=== PATIENT | male | born 1945 | race Caucasian/White ===

== ENCOUNTER 2017-06-05 06:38 | Observation (INO) | payer MEDICARE ==
[~2017-06-05] VITALS: Ht 162.6 cm; Wt 62.1 kg
[~2017-06-05 06:38] MED LIST: ATEN50TA PO; B-COINJ; B-COINJ IM; CETI-1 PO; DOCU1CAP66 PO; FURO1TAB62 PO; LATA0.002 EACH EYE; LEVO.05 PO; LEVO.075 PO; METO25TA3 PO; PANT40TA3 PO; TAMS5CAP PO
[2017-06-05] MEDS ORDERED: VANCOMYCIN 1 GM/200 ML PREMIX ON-CALL IV SCH (07:15)
[2017-06-05] MEDS ORDERED: LACTATED RINGER'S 1000 ML IV PRN (07:15)
[2017-06-05] MEDS ORDERED: SODIUM CHLORID 0.9% 500 ML IV PRN (07:15)
[2017-06-05] MEDS ORDERED: SODIUM CHLOR 0.9% 1000 ML INJ 1,000 ML IV SCH (07:15)
[2017-06-05] MEDS ORDERED: METOPROLOL TARTRATE 25 MG TAB PO PRN (07:15)
[2017-06-05] MEDS ORDERED: INSULIN HUMAN REGULAR 1,000 UNITS/10 ML VIAL SQ PRN (07:15)
[2017-06-05] MEDS ORDERED: POVIDONE IODINE 5% (ANTISEPSIS KIT) 4 APPLICATIONS EACH NARE PRN (07:15)
[2017-06-05] MEDS ORDERED: CHLORHEXIDINE GLUCONATE 2 % 1 PACK (2 CLOTHS) TOPICAL PRN (07:15)
[2017-06-05] MEDS ORDERED: GENTAMICIN SULFATE 80 MG/2 ML VIAL ONE ×2 (07:23→07:26)
[2017-06-05] MEDS ORDERED: THROMBIN (TOPICAL) 5,000 UNIT VIAL ONE (07:23)
[2017-06-05] MEDS ORDERED: GELFOAM SIZE 100 ONE (07:23)
[2017-06-05] MEDS ORDERED: PROPOFOL 500 MG/50 ML INJ 150 ML ONE (08:13)
[2017-06-05] MEDS ORDERED: SUFentanil INJ 250 MCG/5 ML AMP ONE (08:13)
[2017-06-05] MEDS ORDERED: HYDROmorphone HCL PF 2 MG/ML VIAL ONE (08:13)
[2017-06-05] MEDS ORDERED: ACETAMINOPHEN 1000 MG/100 ML 100 ML IV ONE (08:14)
[2017-06-05] MEDS ORDERED: ARTIFICIAL TEARS OPTH OINT 3.5 APPLIC/3.5 GM TUBO ONE (08:14)
[2017-06-05] MEDS ORDERED: ceFAZolin 2 GM PREMIX 50 ML ONE (08:47)
[2017-06-05] MEDS ORDERED: DEXAMETHASONE SOD PHOS 4 MG/ML VIAL ONE (08:56)
[2017-06-05] MEDS ORDERED: PHENYLEPH/NS 1000 MCG/10 ML SYR IV ONE (12:00)
[2017-06-05] MEDS ORDERED: PROPOFOL 200 MG/20 ML AMP IV ONE (12:00)
[2017-06-05] MEDS ORDERED: LACTATED RINGER'S 1,000 ML BAG IV ONE (12:00)
[2017-06-05] MEDS ORDERED: ROCURONIUM INJ 50 MG/5 ML SYRINGE IV PUSH ONE (12:00)
[2017-06-05] MEDS ORDERED: DEXAMETHASONE SOD PHOS 4 MG/ML VIAL IV ONE (12:00)
[2017-06-05] MEDS ORDERED: KETOROLAC TROMETHAMINE 30 MG/ML (IVP) VIAL IV PUSH ONE (12:00)
[2017-06-05] MEDS ORDERED: ePHEDrine/NS 25 MG/5 ML SYRINGE IV ONE (12:00)
[2017-06-05] MEDS ORDERED: ONDANSETRON HCL 4 MG/2 ML VIAL IV ONE (12:00)
[2017-06-05] MEDS ORDERED: METOPROLOL TARTRATE 5 MG/5 ML VIAL IV ONE (12:00)
--- NOTE | 2017-06-05 12:12 | PD.OP ---
Operative Report Date of Surgery: Jun 05, 2017 Preoperative Diagnosis: Cervical degenerative disk disease with instability Postoperative Diagnosis: Cervical degenerative disk disease with instability Procedure: C4-5, C5-6 anterior cervical discectomy, interbody arthodhesis using PEEK cage filled with autologous bone graft, Simplicity plate and screws. Anesthesia: general Surgeon: Alex Humphries Furnace Installer Helper(s): Parul Metz Operation and Findings: INDICATIONS FOR THE PROCEDURE Dr Simmons is a 72 year-old male who presented with intractable neck pain and clinical evidence of upper extremity C5, C6 radiculopathy. He was found to have significant spondylosis with stenosis and mechanical instability at C4-5. He failed maximum nonsurgical management including multiple modalities of conservative treatment as well as pain management interventions by an interventional pain specialist. A surgical decompression and arthrodhesis were indicated. The [id number] details of the procedure, indications, alternatives, risks and potential complications were fully discussed with the patient. The patient fully understood. All The questions were answered. No guarantees were given. The patient voiced requesting the procedure and provided informed consents. The patient was offered the alternative of delaying the procedure and continuing with nonsurgical management. DETAILS OF THE SURGICAL PROCEDURE After the induction of general anesthesia, endotracheal intubation was performed. A Love catheter, bilateral CHAYITO hose, and sequential compression devices were placed and kept throughout the procedure. Placement of electrodes for neurophysiological monitoring of the somatosensorial evoked potentials, motor evoked potentials, and EMG as well as laryngeal nerve monitoring was achieved. The patient was positioned supine on a Trent table with the head over a gel doughnut. All pressure points were carefully padded with eggcrate mattress. The eyes were tapped shut after ointment was applied by the anesthesiologist to prevent corneal abrasion. A Arnie hugger was placed over the exposed lower body to maintain control of the core body temperature. The electrophysiological team placed the needles and electrodes in their proper location and baseline SSEP's and motor evoked potentials were registered prior and after positioning and endotracheal intubation. The anterior cervical region was prepped and draped in the usual sterile fashion. A localizing x-ray was performed with a C-arm. The surgical procedure was performed in several steps as follow: SURGICAL APPROACH A skin incision was made along the medial cervical crease with a #10 blade. The dissection was carried out through the platysma exposing the sternocleidomastoid muscle. The cervical spine was approached following the fascial layers of the neck just medial to the anterior border of the sternocleidomastoid and carotid sheath by a combination of sharp and dull dissection. The omohyoid muscle was identified and carefully dissected laterally and the deep cervical fascia was carefully opened. The longus colli muscles were retracted to each side of the midline. A marker was placed at the disc space C5-6 and a cross-table lateral x-ray performed with a C-arm. SURGICAL DECOMPRESSION In order to decompress the anterior surface of the spinal cord it was necessary to preform a microsurgical resection of the disk at C4-5 and C5-6. At this point in the procedure the operating microscope was draped in the usual sterile fashion and brought to the field. The rest of the surgical procedure was performed using microdissection technique with the exception of the closure. Under the operative microscopic, a self-retaining retractor was placed underneath the longus colli muscle. Anterior osteophite spurs werte carefully removed with the Leksell. The annulus at C4-5 and C5-6 were incised with a #15 blade and microdiscectomy was then carefully carried out using angled curets and pituitary forceps. There were osteophitic/disk complexes mass effect and compression of the dural sac and nerve roots. The posterior longitudinal ligament was then elevated with an angled curet and incised with a 15 bladed knife. A careful resection of the posterior longitudinal ligament was carried out using a thin footplate 2 mm Kerrison. A nerve hook was used to assess the epidural space behing the vertebral bodies C5 and C6 in search for residual disk fragments. The margins of the posterior endplates at C4-5 and C5-6 were carefully drilled and undercut with a TPS drill under high magnification. The decompression was then carried out laterally, and a bilateral foraminotomy was performed with a 2mm thin foot Kerrison. Then the vertebral bodies above and below the disk space were undercut using a 2 mm thin foot Kerrison. The epidural space was the systematically assessed with a nerve hook in search for disk fragments or scar tissue. An excellent decompression was achieved in both , the dural sac and bilateral exiting nerve roots. The incision was then irrigated with a large amount of antibiotic solution INTERBODY ARTHRODHESIS In order to avoid collapse of the disk space which would result in bilateral foraminal stenosis, and to increase the chances of a successful fusion, it was necessary to place an interbody cage filled with autologous bone. At this point of the procedure, the superior and inferior endplates were then evenly decorticated with a TPS drill. The use of a drill in combination with a curette allowed me to systematically remove the cartilaginous endplates, exposing healthy bone for the interbody arthrodesis. Fourteen millimeters distraction pins were then placed at the vertebral bodies adjacent to the disk space, and gentle distraction was applied. The size of the interbody cage was then assessed using different size spacers, and a rasp was used to ensure no residual cartilage. A PEEK cage of the appropriate size was selected, and the interbody arthrodesis was then preformed by carefully impacting a PEEK cage filled with autologous bone graft to the disc spaces C4-5 and C5-6. An excellent position of the cage was achieved. This was was confirmed anatomically by feeling the space posterior to the implant and distance to the anterior surface of the dural sac. Radiological confirmation of the position was performed with a cross lateral xray performed with the C-arm. INTERNAL INSTRUMENTAL FIXATION Once that the interbody device was in an appropriate position, it was necessary to stabilize the spine with anterior instrumentation. Anterior instrumentation has demonstrated to increase the rate of fusion, acelerate the patient's recovery, and decrease the rate of failed interbody grafts. At this point of the procedure, the distance between the vertebral bodies was carefully measures, and a Simplicity plate was brought to the field and presented in front of the vertebral bodies C4 C5 and C6. Press Hand Supervisor holes were then drilled using the TPS drill, and the plate was then secured to the spine using self-drilling, self-tapping screws. Initially, the inferior right screw was inserted, followed by placement of the contralateral upper screw. The remanding screws were sequentially placed in a contra-lateral fashion. A proper purchase was achieved with all screws and the position of the cage, plate and screws, and alignment of the spine was assessed anatomically by direct visualization, and radiologically by performing a cross lateral xray of the cervical spine with the C-arm. CLOSURE The incision was irrigated with several liters of antibiotic solution. Hemostasis was achieved with a bipolar. The screws were locked to prevent backing out. A 7 mm Trent-Carlton drain was left in the prevertebral space and externalized through a separate stab incision. The incision was then closed in layers. 3-0 Vicryl with interrupted sutures was used to close the platysma and subcutaneous tissue. The skin was closed with 4-0 running subcuticular Vicryl and glue was applied to the skin. The drain was secured with a 3-0 nylon. At the end of the procedure the sponge, needle and instrument counts were all correct. The estimated blood loss was less than 60 cc. No blood transfusion was given. No intraoperative complications occurred. The patient received prophylactic antibiotics. The patient was then extubated and transferred to the recovery room in stable condition. Alex Humphries MD Jun 05, 2017 12:12
[2017-06-05] MEDS ORDERED: BISACODYL 10 MG SUPP RECTAL PRN (12:15)
[2017-06-05] MEDS ORDERED: ACETAMINOPHEN/HYDROcodone 325 MG/10 MG TAB PO PRN ×2 (12:15)
[2017-06-05] MEDS ORDERED: cloNIDine HCL 0.1 MG TAB PO/NG PRN (12:15)
[2017-06-05] MEDS ORDERED: ACETAMINOPHEN 325 MG TAB PO PRN (12:15)
[2017-06-05] MEDS ORDERED: GLUCAGON 1 MG/ML VIAL OTHER PRN (12:15)
[2017-06-05] MEDS ORDERED: MAGNESIUM HYDROXIDE SUSP 30 ML CUP PO PRN (12:15)
[2017-06-05] MEDS ORDERED: MENTHOL LOZENGE BUCCAL PRN (12:15)
[2017-06-05] MEDS ORDERED: RESP: ALBUTEROL 2.5 MG/3 ML NEB (PRN) INH (12:15)
[2017-06-05] MEDS ORDERED: ONDANSETRON HCL 4 MG/2 ML VIAL IV PRN (12:15)
[2017-06-05] MEDS ORDERED: CYCLOBENZAPRINE HCL 10 MG TAB PO PRN (12:15)
[2017-06-05] MEDS ORDERED: MORPHINE SULFATE 4 MG/ML INJ IV PUSH PRN ×2 (12:15)
[2017-06-05] MEDS ORDERED: DEXTROSE 50% IN WATER 50 ML VIAL(D50) IV PUSH PRN (12:15)
--- NOTE | 2017-06-05 12:29 | HHI.DCPOC ---
Discharge Care Plan Diagnosis: (1) Status post cervical arthrodesis Goals to Promote Your Health * To prevent worsening of your condition and complications * To maintain your health at the optimal level Directions to Meet Your Goals Take your medications as prescribed Follow your dietary instruction Follow activity as directed Keep your appointments as scheduled Take your immunizations and boosters as scheduled If your symptoms worsen call your PCP, if no PCP go to Urgent Care Center or Emergency Room Smoking is Dangerous to Your Health. Avoid second hand smoke Call the 24-hour hour crisis hotline for domestic abuse at Lotus Goins Jun 05, 2017 12:29
--- NOTE | 2017-06-05 12:30 | HHI.FF ---
Face to Face Verification Diagnosis: (1) Status post cervical arthrodesis Physical Therapy Order: Improve ambulation Occupational Therapy Order: Evaluate and Treat, Improve ADL, Gross motor coordination, Fine motor coordination Home Health Nursing Order: Medical education Signs/symptoms of disease process Medication education-adverse effect Wound care and dressing changes Nursing assessment with vital signs I have seen patient Jalen Briggs on 06/05/17. My clinical findings support the need for the requested home health care services because: Deconditioned w/ increased weakness I certify that my clinical findings support that this patient is homebound because: Post-op weakness Lotus Goins Jun 05, 2017 12:30
[2017-06-05] MEDS ORDERED: DO NOT ADM ANY ANTICOAGULANT DRUGS PRN (12:32)
[2017-06-05] MEDS ORDERED: DOCUSATE SODIUM 100 MG CAP PO PRN (12:45)
[2017-06-05] MEDS ORDERED: MIDAZOLAM HCL 2 MG/2 ML VIAL ONE (12:47)
[2017-06-05] MEDS ORDERED: *LABETALOL HCL 100 MG/20 ML VIAL PERIprocedural Use ONLY ONE (12:58)
[2017-06-05] MEDS ORDERED: *ENALAPRILAT 1.25 MG/ML VIAL PERIprocedural Use ONLY ONE (12:58)
[2017-06-05] MEDS ORDERED: HYDR-3583 PO (13:29)
[2017-06-05] MEDS: SODIUM CHLOR 0.9% 1000 ML INJ 1,000 ML IV SCH ×2 (13:30→23:30)
--- NOTE | 2017-06-05 13:56 | RADRPT ---
EXAM DATE/TIME: 06/05/2017 10:06 [facility] COMPARISON: No previous studies available for comparison. INDICATIONS : Herniated disk MEDICAL HISTORY : None. SURGICAL HISTORY : None. ENCOUNTER: Initial ACUITY: 1 day PAIN SCORE: Non-responsive. LOCATION: Cervical spine FINDINGS: Status post anterior cervical fusion from C4-C6. Alignment anatomic. CONCLUSION: Anatomic alignment. Maxi Ortiz MD FACR on June 05, 2017 at 13:54 Board Certified Radiologist. This report was verified electronically.
[2017-06-05] MEDS: DOCUSATE SODIUM 100 MG CAP PO SCH ×2 (14:00→21:46)
[2017-06-05] MEDS: FUROSEMIDE 20 MG TAB PO SCH (15:00)
[2017-06-05] MEDS ORDERED: LEVOTHYROXINE SODIUM 75 MCG TAB PO ONE (15:00)
[2017-06-05 16:00] VITALS: BP 122/80; PULSE 95; RESP 18; TEMP 96.4; O2SAT 94
[2017-06-05] MEDS: DEXAMETHASONE SOD PHOS 4 MG/ML VIAL IV PUSH SCH ×2 (18:12→21:47)
[2017-06-05] MEDS: ceFAZolin 2 GM PREMIX 50 ML IV SCH (18:13)
[2017-06-05] MEDS: TAMSULOSIN HCL 0.4 MG CAP PO SCH (18:21)
[2017-06-05 20:00] VITALS: BP 142/86; PULSE 97; RESP 18; TEMP 96; O2SAT 95
[2017-06-05] MEDS ORDERED: TEMAZEPAM 15 MG CAP PO ONE (21:00)
[2017-06-05] MEDS ORDERED: LATANOPROST 0.005% OPHT SOLN 2.5 ML BTL EACH EYE SCH (21:00)
[2017-06-05] MEDS ORDERED: CHLORHEXIDINE GLUCONATE 4% SOLN 120 ML BTL TOP SCH (21:00)
[2017-06-05] MEDS: METOPROLOL TARTRATE 25 MG TAB PO SCH (21:46)
[2017-06-05 23:54] VITALS: BP 144/85; PULSE 90; RESP 17; TEMP 97.5; O2SAT 97
[2017-06-06] MEDS: ceFAZolin 2 GM PREMIX 50 ML IV SCH ×2 (00:52→07:43)
[2017-06-06] MEDS: DEXAMETHASONE SOD PHOS 4 MG/ML VIAL IV PUSH SCH ×2 (03:06→07:42)
[2017-06-06 04:15] VITALS: BP 145/76; PULSE 84; RESP 18; TEMP 97.2; O2SAT 98
[2017-06-06] MEDS ORDERED: LEVOTHYROXINE SODIUM 50 MCG TAB PO SCH (06:00)
[2017-06-06] MEDS: TAMSULOSIN HCL 0.4 MG CAP PO SCH (07:43)
[2017-06-06] MEDS: METOPROLOL TARTRATE 25 MG TAB PO SCH (07:43)
[2017-06-06] MEDS: FUROSEMIDE 20 MG TAB PO SCH (07:48)
[2017-06-06] MEDS: DOCUSATE SODIUM 100 MG CAP PO SCH (07:49)
[2017-06-06 08:00] VITALS: BP 152/73; PULSE 99; RESP 18; TEMP 96.7; O2SAT 92
[2017-06-06] MEDS ORDERED: CETIRIZINE HCL 10 MG TAB PO SCH (09:00)
[2017-06-06] MEDS ORDERED: PANTOPRAZOLE SOD 40 MG DELAYED RELEASE TAB PO SCH ×2 (09:00)
[2017-06-06] MEDS ORDERED: PANTOPRAZOLE SODIUM 40 MG VIAL IVP SCH (09:00)
[2017-06-06] MEDS: SODIUM CHLOR 0.9% 1000 ML INJ 1,000 ML IV SCH (09:30)
[2017-06-07] MEDS ORDERED: LEVOTHYROXINE SODIUM 75 MCG TAB PO SCH (06:00)
--- NOTE | 2017-06-08 13:01 | HHI.DS ---
Discharge Summary Admission Date Jun 05, 2017 at 12:06 Discharge Date: Jun 06, 2017 Admitting Diagnosis s/p ACDF (1) Status post cervical arthrodesis ICD Code: Z98.1 - Arthrodesis status Brief History Dr Simmons is a 72 year-old male who presented with intractable neck pain and clinical evidence of upper extremity C5, C6 radiculopathy. He was found to have significant spondylosis with stenosis and mechanical instability at C4-5. He failed maximum nonsurgical management including multiple modalities of conservative treatment as well as pain management interventions by an interventional pain specialist. A surgical decompression and arthrodesis were indicated. Imaging Last Impressions Cervical Spine X-Ray 06/05/17 0000 Signed Impressions: Service Date/Time: Monday, June 05, 2017 10:06 - CONCLUSION: Anatomic alignment. Maxi Ortiz MD [facility] Course Dr. Briggs underwent a C4-5, C5-6 anterior cervical discectomy, interbody arthodhesis using PEEK cage filled with autologous bone graft, Simplicity plate and screws on Jun 05, 2017 for cervical degenerative disk disease with instability. His surgery went well without complications. He was discharged home in stable conditions. Pt Condition on Discharge: Stable Discharge Disposition: Disch w/ Home Health Serv Discharge Instructions DIET: Follow Instructions for: Heart Healthy Diet ACTIVITIES You can perform: Weight Bearing As Zach ADDITIONAL Activity Instructio: Avoid strenuous activities, heavy lifting over 5 lbs, overhead activities, repetitive bending, twisting, pushing, pulling or any activities which might result in stress over the spine. Avoid situation that will put at risk for falls. Use assistive device as needed for walking. Wear cervical collar at all times, may remove only with meals. New Medications: Hydrocodone/Acetaminophen (Hydrocodone-Acetamin 10-325 mg) 10 Mg-325 Mg Tablet 1 TAB PO Q8HR PRN for PAIN SCALE 1 TO 10, #1 TAB-CAP 0 Refills Continued Medications: B-Complex Vitamins Inj (Vitamin B-Complex Inj) 3-354-5-100-2 Mg/Ml Soln Unknown Dose IM MONTHLY Cetirizine HCl (Zyrtec) 10 Mg Tablet 1 TAB PO DAILY Docusate Sodium (Stool Softener) 100 Mg Cap 1 CAP PO DAILY PRN for CONSTIPATION, CAP Furosemide (Lasix) 20 Mg Tab 20 MG PO EVERY OTHER DAY, #30 TAB 0 Refills Latanoprost Opth Drops (Latanoprost Opth Drops) 0.005% Drops 1 DROP EACH EYE HS for Glaucoma, #2.5 ML 0 Refills Refrigerate until opened. Levothyroxine (Synthroid) 50 Mcg Tab 50 MCG PO DIRECTED for Thyroid, #30 TAB 0 Refills EVERY OTHER DAY ON EVEN DAYS Levothyroxine (Synthroid) 75 Mcg Tab 75 MCG PO DIRECTED for Thyroid, #30 TAB 0 Refills EVERY OTHER DAY ON ODD DAYS Metoprolol Tartrate (Metoprolol Tartrate) 25 Mg Tab 25 MG PO BID, #60 TAB 0 Refills Pantoprazole (Pantoprazole) 40 Mg Tab 40 MG PO DAILY for Reflux, #30 TAB 0 Refills Tamsulosin (Flomax) 0.4 Mg Cap 0.4 MG PO BID for Manage Prostate Problems, #30 CAP 0 Refills Lotus Goins Jun 08, 2017 13:01
== END 2017-06-06 16:12 | disposition home or self-care (01) ==
LOC: HSDC 06:38 → HSDI 12:06 → N06B 14:38
PROVIDERS: ADMIT Neurological Surgery; ATTEND Neurological Surgery
DX: M48.02 Spinal stenosis, cervical region (principal); M47.892 Other spondylosis, cervical region; E03.9 Hypothyroidism, unspecified; Z79.899 Other long term (current) drug therapy
CPT/HCPCS: 00600; 20936; 22551; 22552; 22853; 72040; 76000; 97161; 97166; C1713; G0378; G8987; G8988; G8989; J0131; J0690; J1100; J1170; J1580; J1885; J2250; J2370; J2405; J3010; J3370; J7030; J7120; L0150; L0172